=== PATIENT | female | born 1975 | race African-American/Black ===

== ENCOUNTER 2020-08-18 22:59 | Emergency (ER) | payer BC, OTHER ==
[~2020-08-18] VITALS: Ht 157.5 cm; Wt 113.6 kg
[~2020-08-18 22:59] MED LIST: CETI10TA74 PO; DULO60CA6 PO; LAMO200T3 PO
[2020-08-18] MEDS ORDERED: IPRATRPIUM/ALBUTEROL 0.5/2.5MG 3 ML NEBU. ONE (23:08)
[2020-08-18] MEDS ORDERED: IPRATRPIUM/ALBUTEROL 0.5/2.5MG 3 ML NEBU. NEB ONE (23:15)
[2020-08-18] MEDS ORDERED: IV RINGERS SOLUTION,LACTATED 1,000 ML IV SCH (23:15)
[2020-08-18] MEDS ORDERED: methylPREDNISolone SOD SUCC PF 125 MG/2 ML VIAL. IV ONE (23:30)
[2020-08-18] MEDS ORDERED: ASPIRIN CHEWABLE 81 MG TABLET. PO ONE (23:30)
[2020-08-18 23:40] LABS: BASO % 0 % (0-3); EOS % 0 % (0-3); HEMATOCRIT 46.5 % (36.0-47.0); HEMOGLOBIN 15.8 g/dL (12.0-15.5); LYMPH # 0.5 x10^3/uL (1.0-4.8); LYMPH % 4 % (24-48); MEAN CORPUSCULAR HEMOGLOBIN 33 pg (25-35); MEAN CORPUSCULAR HGB CONC 34 g/dL (31-37); MEAN CORPUSCULAR VOLUME 96 fL (79-100); MONO # 0.1 x10^3/uL (0.0-1.1); MONO % 1 % (0-9); NEUT # 10.4 x10^3uL (1.8-7.7); NEUT % 94 % (31-73); PLATELET COUNT 239 x10^3/uL (140-400); RED BLOOD COUNT 4.85 x10^6/uL (3.50-5.40); RED CELL DISTRIBUTION WIDTH 12.7 % (11.5-14.5)
[2020-08-19 00:09] LABS: CALCIUM 9.4 mg/dL (8.5-10.1); CREATININE 1.1 mg/dL (0.6-1.0); GFR 65.6; POTASSIUM 3.4 mmol/L (3.5-5.1)
[2020-08-19 00:24] LABS: ALBUMIN 3.9 g/dL (3.4-5.0); DIRECT BILIRUBIN 0.1 mg/dL (0.0-0.2); MAGNESIUM 2.2 mg/dL (1.8-2.4); TOTAL BILIRUBIN 0.2 mg/dL (0.2-1.0); TOTAL PROTEIN 7.1 g/dL (6.4-8.2)
[2020-08-19] MEDS ORDERED: IPRATRPIUM/ALBUTEROL 0.5/2.5MG 3 ML NEBU. NEB ONE (00:45)
[2020-08-19] MEDS ORDERED: PRED50TA PO (00:49)
--- NOTE | 2020-08-19 00:51 | RAD ---
INDICATION: Reason: dyspnea / Spl. Instructions: / History: COMPARISON: January 2012 FINDINGS: Single view of chest obtained. Cardiac silhouette is unremarkable. Mild haziness at the lower lungs without consolidation elsewhere. No gross osseous destructive lesion IMPRESSION: * Mild haziness at the lung bases. Could be secondary to overlap of soft tissue structures or atelec tasis. Electronically signed by: Dat Salinas MD (08/19/2020 12:49 AM) [id number]
[2020-08-19 00:53] VITALS: BP 159/93
--- NOTE | 2020-08-19 03:26 | EKG ---
[address] [address] Test Date: 2020-08-19 Test Time: 01:10:43 Pat Name: KENYON TAYLOR Department: Room: Gender: F Coal Digger: ALINA : 1975 Requested By: CHARLEY BHAKTA Order Number: [id number] Reading MD: Measurements Intervals [place] Rate: 85 P: -56 DE: 168 QRS: -51 QRSD: 136 T: 62 QT: 402 QTc: 479 Interpretive Statements SUPRAVENTRICULAR RHYTHM VENTRICULAR PREMATURE COMPLEX(ES) ABNORMAL LEFT AXIS DEVIATION LEFT BUNDLE BRANCH BLOCK ABNORMAL ECG RI6.02 No previous ECG available for comparison
--- NOTE | 2020-08-19 11:56 | PHYS DOC ---
Past History Past Medical History: Asthma, Bronchitis, Depression, Fibromyalgia, Hypertension Past Surgical History: , Hysterectomy Alcohol Use: None Drug Use: None General Adult EDM: Chief Complaint: SHORTNESS OF BREATH HPI: HPI: ".. My asthma.. .. Flared up tonight... I could not get it controlled with my inhaler...actually it been silvia.. f been sneaking up on me all week I got meds at home ...it just that I could never get ahead of it...." Patient is a 45 year old female who presents with complaints of an patient does not patient advises she been having increased respiratory difficulties all week with weather changes. Patient has had asthma problems since a child. No recent admissions for asthma exacerbations. Has not been on steroids recently. Has not been on antibiotics recently. Patient does not know her best peak flow. Patient states her triggers are seasonal. Patient does have past medical history of hypertension, fibromyalgia, and obesity. Patient normally follows with Dr. Ayoub for care. Patient has followed with Dr. Guzman in the past. Patient denies any recent travel or specific ill contacts. Patient does get a flu shot every year. Patient has had a Pneumovax. Review of Systems: Review of Systems: Constitutional: Denies fever or chills Eyes: Denies change in visual acuity HENT: Denies nasal congestion or sore throat Respiratory: History of a nonproductive cough and wheezing Cardiovascular: Denies chest pain or edema GI: Denies abdominal pain, nausea, vomiting, bloody stools or diarrhea : Denies dysuria Musculoskeletal: Denies back pain or joint pain Integument: Denies rash Neurologic: Denies headache, focal weakness or sensory changes Endocrine: Denies polyuria or polydipsia Lymphatic: Denies swollen glands Psychiatric: Denies depression or anxiety Family History: Family History: Noncontributory to presentation Current Medications: Current Meds: Current Medications Medications (Trade) Dose Ordered Sig/Eduardo Start Time Stop Time Status Last Admin Dose Admin Albuterol/ Ipratropium (Duoneb) 3 ml 1X ONCE 08/19/20 00:45 08/19/20 01:03 DC 08/19/20 00:49 3 ML Aspirin (Aspirin Chewable) 324 mg 1X ONCE 08/18/20 23:30 08/18/20 23:31 DC 08/19/20 00:12 324 MG Lactated Ringer's 1,000 ml @ 100 mls/hr Q10H 08/18/20 23:15 08/19/20 01:18 DC 08/19/20 00:10 100 MLS/HR Methylprednisolone Sodium Succinate (SOLU-Medrol 125MG VIAL) 125 mg 1X ONCE 08/18/20 23:30 08/18/20 23:31 DC 08/19/20 00:10 125 MG Allergies: Allergies: Allergies Coded Allergies Type Severity Reaction Last Updated Verified No Known Drug Allergies 08/19/20 No Physical Exam: PE: Constitutional: Moderate acute distress, non-toxic appearance. [] HENT: Normocephalic, atraumatic, bilateral external ears normal, oropharynx dry, postnasal drainage, no oral exudates, nose swollen turbinates and clear rhinorrhea Eyes: PERRLA, EOMI, conjunctiva normal, no discharge. Glasses Neck: Normal range of motion, no tenderness, supple, no stridor. [] Cardiovascular: Tachycardia heart rate regular rhythm, no murmur [] Lungs & Thorax: Bilateral breath sounds equal at apex with scattered wheezing throughout on auscultation [] Pt.has mild intercostal retraction. Abdomen: Bowel sounds decreased, soft, no tenderness, no masses, no pulsatile masses. Obese. Old surgical scars. Skin: Warm, dry, no erythema, no rash. [] Back: No tenderness, no CVA tenderness. [] Extremities: No tenderness, no cyanosis, no clubbing, ROM intact, ankle edema. No cording appreciated. Neurologic: Alert and oriented X 3, normal motor function, normal sensory function, no focal deficits noted. [] Psychologic: Affect anxious, judgement normal, mood normal. [] Current Patient Data: Labs: Laboratory Tests Test 08/18/20 23:20 White Blood Count 11.0 x10^3/uL (4.0-11.0) Red Blood Count 4.85 x10^6/uL (3.50-5.40) Hemoglobin 15.8 g/dL (12.0-15.5) H Hematocrit 46.5 % (36.0-47.0) Mean Corpuscular Volume 96 fL (79-100) Mean Corpuscular Hemoglobin 33 pg (25-35) Mean Corpuscular Hemoglobin Concent 34 g/dL (31-37) Red Cell Distribution Width 12.7 % (11.5-14.5) Platelet Count 239 x10^3/uL (140-400) Neutrophils (%) (Auto) 94 % (31-73) H Lymphocytes (%) (Auto) 4 % (24-48) L Monocytes (%) (Auto) 1 % (0-9) Eosinophils (%) (Auto) 0 % (0-3) Basophils (%) (Auto) 0 % (0-3) Neutrophils # (Auto) 10.4 x10^3uL (1.8-7.7) H Lymphocytes # (Auto) 0.5 x10^3/uL (1.0-4.8) L Monocytes # (Auto) 0.1 x10^3/uL (0.0-1.1) Eosinophils # (Auto) 0.0 x10^3/uL (0.0-0.7) Basophils # (Auto) 0.0 x10^3/uL (0.0-0.2) Prothrombin Time 9.3 SEC (9.4-11.4) L Prothrombin Time INR 0.9 (0.9-1.1) Activated Partial Thromboplast Time 22 SEC (23-33) L D-Dimer (Breana) 0.39 mg/L (0.00-0.50) Sodium Level 144 mmol/L (136-145) Potassium Level 3.4 mmol/L (3.5-5.1) L Chloride Level 104 mmol/L (98-107) Carbon Dioxide Level 29 mmol/L (21-32) Anion Gap 11 (6-14) Blood Urea Nitrogen 9 mg/dL (7-20) Creatinine 1.1 mg/dL (0.6-1.0) H Estimated GFR (Cockcroft-Gault) 65.6 Glucose Level 136 mg/dL (70-99) H Calcium Level 9.4 mg/dL (8.5-10.1) Magnesium Level 2.2 mg/dL (1.8-2.4) Total Bilirubin 0.2 mg/dL (0.2-1.0) Direct Bilirubin 0.1 mg/dL (0.0-0.2) Aspartate Amino Transferase (AST) 15 U/L (15-37) Alanine Aminotransferase (ALT) 22 U/L (14-59) Alkaline Phosphatase 64 U/L (46-116) Creatine Kinase 226 U/L (26-192) H Creatine Kinase MB (Mass) 6.2 ng/mL (0.0-3.6) H Creatine Kinase MB Relative Index 2.7 % (0-4) Troponin I Quantitative < 0.017 ng/mL (0-0.055) PE-Aia-I-Type Natriuretic Peptide 353 pg/mL (0-124) H Total Protein 7.1 g/dL (6.4-8.2) Albumin 3.9 g/dL (3.4-5.0) Lipase 140 U/L (73-393) Vital Signs: Vital Signs Date Time Temp Pulse Resp B/P (MAP) Pulse Ox O2 Delivery O2 Flow Rate FiO2 08/19/20 00:53 107 28 159/93 (115) 99 08/19/20 00:50 Room Air 08/18/20 22:59 98.3 EKG: EKG: EKG shows a sinus tachycardia, bimodal P waves. Low voltage throughout. No findings of acute STEMI of contralateral changes. [] Radiology/Procedures: Radiology/Procedures: [][address] [address] IMAGING REPORT Signed PATIENT: KENYON TAYLOR ACCOUNT: [id number] : 1975 LOCATION: ER AGE: 45 SEX: F EXAM STATUS: PRE ER ORD. PHYSICIAN: CHARLEY BHAKTA MD REASON: dyspnea PROCEDURE: PORTABLE CHEST 1V INDICATION: Reason: dyspnea / Spl. Instructions: / History: COMPARISON: January 2012 FINDINGS: Single view of chest obtained. Cardiac silhouette is unremarkable. Mild haziness at the lower lungs without consolidation elsewhere. No gross osseous destructive lesion IMPRESSION: * Mild haziness at the lung bases. Could be secondary to overlap of soft tissue structures or atelectasis. Electronically signed by: Joel Salinas MD (08/19/2020 12:49 AM) [id number] DICTATED AND SIGNED BY: JOEL SALINAS MD DATE: 08/19/20 0047 CC: SUZY GUZMAN MD; YONY,CHARLEY H MD ~MTH0 0 Heart Score: HEART Score for Chest Pain: HEART Score for Chest Pain Response (Comments) Value History Slighlty/Non-Suspicious 0 ECG Normal 0 Age < 45 0 Risk Factors No Risk Factors 0 Troponin < Normal Limit 0 Total 0 Risk Factors: Risk Factors: DM, Current or recent (<one month) smoker, HTN, HLP, family history of CAD, obesity. Risk Scores: Score 0 - 3: 2.5% MACE over next 6 weeks - Discharge Home Score 4 - 6: 20.3% MACE over next 6 weeks - Admit for Clinical Observation Score 7 - 10: 72.7% MACE over next 6 weeks - Early Invasive Strategies Course & Med Decision Making: Course & Med Decision Making Pertinent Labs and Imaging studies reviewed. (See chart for details) Patient given Solu-Medrol IV and repeat DuoNeb treatments in the emergency department with resolution of her dyspnea complaints. At time of discharge no longer in respiratory distress. Patient insistent on discharge home. Patient will be discharged on prednisone 50 mg daily for 5 days. Patient continue your MD I inhaler 2 puffs 4 times a day. Patient to document peak flows. Pt. Show these results to your doctor on follow-up. Patient return if any concerns. Patient instructed on spacer use as well as peak flow monitoring by respiratory therapy. Impression: 1. Asthma exacerbation 2. Morbid obesity [] Carter Disclaimer: Carter Disclaimer: This electronic medical record was generated, in whole or in part, using a voice recognition dictation system. Departure Departure: Impression: Primary Impression: Asthma action plan declined Additional Impression: Asthma Disposition: 01 [place] HOME SELF CARE/HOMELESS Condition: GUARDED Referrals: SUZY GUZMAN MD Patient Instructions: Asthma Prevention-Brief, Asthma, Acute Bronchospasm Additional Instructions: Push fluids. Use MDI two puffs four times a day. Take Prednisone 50 mg day. Follow up with Dr. Ayoub. Return if any concern.s Scripts Prednisone (PREDNISONE) 50 Mg Tablet 50 MG PO DAILY for asthma for 5 Days, #5 TAB Prov: CHARLEY BHAKTA MD 08/19/20 Carter Disclaimer This chart was dictated in whole or in part using Voice Recognition software in a busy, high-work load, and often noisy Emergency Department environment. It may contain unintended and wholly unrecognized errors or omissions. CHARLEY BHAKTA MD Aug 19, 2020 11:56
--- NOTE | 2020-08-19 13:37 | EKG ---
[address] [address] Test Date: 2020-08-18 Test Time: 23:57:57 Pat Name: KENYON TAYLOR Department: Room: Gender: F Resourcing Consultant: ALINA : 1975 Requested By: CHARLEY BHAKTA Order Number: [id number] Reading MD: Measurements Intervals [place] Rate: 96 P: -21 [place]: 106 QRS: 141 QRSD: 76 T: 138 QT: 364 QTc: 461 Interpretive Statements SINUS RHYTHM LEFT ATRIAL ABNORMALITY ABNORMAL RIGHT AXIS DEVIATION LOW LIMB LEAD VOLTAGE T ABNORMALITY IN HIGH LATERAL LEADS ABNORMAL ECG RI6.02 Compared to ECG 08/18/2020 23:54:27 Atrial abnormality now present Right-axis deviation now present Myocardial infarct finding no longer present T-wave abnormality still present
== END 2020-08-19 01:17 | disposition home or self-care (01) ==
LOC: ER 22:59
DX: J45.901 Unspecified asthma with (acute) exacerbation (principal); M79.7 Fibromyalgia; I10 Essential (primary) hypertension; Z90.710 Acquired absence of both cervix and uterus; Z98.890 Other specified postprocedural states
CPT/HCPCS: 36415; 71045; 80048; 80076; 82553; 83690; 83735; 83880; 84443; 84484; 85025; 85379; 85610; 85730; 93005; 94640; 96361; 96374; 99285; J2930; J7120

== ENCOUNTER 2020-12-02 03:07 | Emergency (ER) | payer OTHER ==
[~2020-12-02] VITALS: Ht 157.5 cm; Wt 106.4 kg
[~2020-12-02 03:07] MED LIST changes: +PRED50TA PO
[2020-12-02] MEDS ORDERED: ALBUTEROL SULFATE 2.5 MG/3 ML NEBU. ONE (03:11)
[2020-12-02] MEDS ORDERED: IPRATRPIUM/ALBUTEROL 0.5/2.5MG 3 ML NEBU. NEB ONE ×2 (03:15→04:45)
[2020-12-02] MEDS ORDERED: methylPREDNISolone SOD SUCC PF 125 MG/2 ML VIAL. IV ONE (03:30)
[2020-12-02] MEDS ORDERED: IV RINGERS SOLUTION,LACTATED 1,000 ML IV SCH (03:30)
[2020-12-02] MEDS ORDERED: MAGNESIUM SULFATE 2GM 50 ML IV ONE (03:30)
--- NOTE | 2020-12-02 03:36 | PHYS DOC ---
Past History Past Medical History: Asthma, Bronchitis, Depression, Fibromyalgia, Hypertension Past Surgical History: , Hysterectomy Alcohol Use: None Drug Use: Cocaine General Adult EDM: Chief Complaint: SHORTNESS OF BREATH HPI: HPI: ".. I....can't....breath.....asthma....." Patient is a 45 year old female who presents with above hx and complaints of asthma exacerbation. Patient unable to speak a full sentence only able to utter a word at a time.. Minimal air movement. In tripod position with intercostal retractions. Have seen patient before in August of last year for acute asthma exacerbation. Patient does follow-up with shear operator automatic at [facility]. Reportedly her eosinophil counts have been going up in the last couple visits with shear operator automatic. Patient denies any change in meds. Has not been on steroids recently. Patient in the past has had flares related to weather changes and season changes. Patient has been admitted overnight for asthma exacerbations. Has never been intubated. Patient is not currently on steroids. No recent travel. No sick contacts. Patient did get flu vaccination and is up-to-date with Pneumovax. Patient normally follows with Dr. Faith Rodriguez Patient has a past medical history of hypertension, fibromyalgia, obesity. No use immunosuppression. Patient is not ready to call her previous best peak flow.\\ Review of Systems: Review of Systems: Constitutional: Denies fever or chills Eyes: Denies change in visual acuity HENT: Denies nasal congestion or sore throat Respiratory: Complains of wheezing and shortness of breath Cardiovascular: Denies chest pain or edema GI: Denies abdominal pain, nausea, vomiting, bloody stools or diarrhea : Denies dysuria Musculoskeletal: Denies back pain or joint pain Integument: Denies rash Neurologic: Denies headache, focal weakness or sensory changes Endocrine: Denies polyuria or polydipsia Lymphatic: Denies swollen glands Psychiatric: Denies depression or anxiety Family History: Family History: Noncontributory presentation Current Medications: Current Meds: Current Medications Medications (Trade) Dose Ordered Sig/Eduardo Start Time Stop Time Status Last Admin Dose Admin Albuterol Sulfate (Ventolin) 2.5 mg STK-MED ONCE 12/02/20 03:11 12/02/20 03:11 DC Albuterol/ Ipratropium (Duoneb) 6 ml 1X ONCE 12/02/20 03:15 12/02/20 03:22 DC 12/02/20 03:20 6 ML Lactated Ringer's 1,000 ml @ 1,000 mls/hr Q1H 12/02/20 03:30 12/02/20 04:29 Magnesium Sulfate 50 ml @ 25 mls/hr 1X ONCE 12/02/20 03:30 12/02/20 05:29 Methylprednisolone Sodium Succinate (SOLU-Medrol 125MG VIAL) 125 mg 1X ONCE 12/02/20 03:30 12/02/20 03:31 DC Allergies: Allergies: Allergies Coded Allergies Type Severity Reaction Last Updated Verified No Known Drug Allergies 08/19/20 No Physical Exam: PE: Constitutional: in acute distress, very anxious in appearance. [] HENT: Normocephalic, atraumatic, bilateral external ears normal. Glases.[] Neck: Normal range of motion, no tenderness, supple, no stridor. More than 17 have anxious circumference Cardiovascular: Tachycardia heart rate regular rhythm, no murmur [] Lungs & Thorax: Bilateral breath sounds diminished throughout on auscultation []. After first treatment with DuoNeb did have wheezes throughout and better air movement. Abdomen: Bowel sounds normal, soft, no tenderness, no masses, no pulsatile masses. [] Old surgical scars.. Obese Skin: Warm, diaphoretic, no erythema, no rash. [] Back: No tenderness, no CVA tenderness. [] Extremities: No tenderness, no cyanosis, no clubbing, ROM intact, ankle edema. [] No cording. Neurologic: Alert and oriented X 3, moves all extremities on request, does have distal sensory, no focal deficits noted. [] Psychologic: Affect extremely anxious, panic, judgement normal, mood normal. [] Current Patient Data: Vital Signs: Vital Signs Date Time Temp Pulse Resp B/P (MAP) Pulse Ox O2 Delivery O2 Flow Rate FiO2 12/02/20 03:28 100 Room Air EKG: EKG: My interpretation of EKG shows a sinus rhythm at 84 bpm. No acute morphology. Radiology/Procedures: Radiology/Procedures: [][address] [address] IMAGING REPORT Signed PATIENT: BUYCKKENYON Bolton ACCOUNT: [id number] : 1975 LOCATION: ER AGE: 45 SEX: F EXAM STATUS: REG ER ORD. PHYSICIAN: CHARLEY BHAKTA MD REASON: cp, dyspnea PROCEDURE: PORTABLE CHEST 1V Study: XR CHEST 1V Indication: Chest pain. Dyspnea. Comparison: 08/18/2020 Findings: Unchanged cardiomediastinal silhouette and romero. No lobar consolidation, layering effusion or pneumothorax. Mild flattening of the diaphragm. Impression: No acute abnormality is identified. No significant change from 08/18/2020. Mild flattening of the diaphragm could be physiologic but correlate for a smoking history to suggest underlying COPD. Electronically signed by: CAMILLA SOLIS MD (12/02/2020 3:45 AM) [facility] DICTATED AND SIGNED BY: CAMILLA SOLIS MD DATE: 12/02/20 0344 CC: MIL SHRESTHA MD; CHARLEY BHAKTA MD ~MTH0 0 Heart Score: C/O Chest Pain: N/A HEART Score for Chest Pain: HEART Score for Chest Pain Response (Comments) Value History Moderately Suspicious 1 ECG Nonspecific Repolarizatio 1 Age < 45 0 Risk Factors 1 or 2 Risk Factors 1 Troponin < Normal Limit 0 Total 3 Risk Factors: Risk Factors: DM, Current or recent (<one month) smoker, HTN, HLP, family history of CAD, obesity. Risk Scores: Score 0 - 3: 2.5% MACE over next 6 weeks - Discharge Home Score 4 - 6: 20.3% MACE over next 6 weeks - Admit for Clinical Observation Score 7 - 10: 72.7% MACE over next 6 weeks - Early Invasive Strategies Course & Med Decision Making: Course & Med Decision Making Pertinent Labs and Imaging studies reviewed. (See chart for details) Pt.improved significantly with fluids, duo nebs, steroids, magnesium IV. Patient no longer tachycardia at time of discharge and was moving air well. Patient continue meds. It appears directed by her shear operator automatic. Patient take prednisone 50 mg daily for 5 days. Patient follow-up with primary care. Patient return for any concerns. Patient currently declines admission at this time. Patient encouraged to avoid marijuana and cocaine use or exposure to secondary smoke. Impression: 1. Respiratory failure-acute asthma exacerbation 2. Drug screen + for marijuana and cocaine 3. Elevated CK 460 Dragon Disclaimer: Dragon Disclaimer: This electronic medical record was generated, in whole or in part, using a voice recognition dictation system. Departure Departure: Referrals: MIL SHRESTHA MD (PCP) Scripts Ipratropium/Albuterol Sulfate (DUONEB 0.5-3(2.5) MG/3 ML) 3 Ml Ampul.neb 3 ML NEB QID for asthma, #120 EACH Prov: CHARLEY BHAKTA MD 12/02/20 Prednisone (PREDNISONE) 50 Mg Tablet 50 MG PO DAILY for asthma, #5 TAB Prov: CHARLEY BHAKTA MD 12/02/20 Carter Disclaimer This chart was dictated in whole or in part using Voice Recognition software in a busy, high-work load, and often noisy Emergency Department environment. It may contain unintended and wholly unrecognized errors or omissions. CHARLEY BHAKTA MD Dec 02, 2020 03:35
[2020-12-02 03:41] LABS: BASO # 0.1 x10^3/uL (0.0-0.2); BASO % 1 % (0-3); EOS # 0.6 x10^3/uL (0.0-0.7); EOS % 10 % (0-3); HEMATOCRIT 43.2 % (36.0-47.0); HEMOGLOBIN 14.7 g/dL (12.0-15.5); LYMPH # 2.4 x10^3/uL (1.0-4.8); LYMPH % 39 % (24-48); MEAN CORPUSCULAR HEMOGLOBIN 33 pg (25-35); MEAN CORPUSCULAR HGB CONC 34 g/dL (31-37); MEAN CORPUSCULAR VOLUME 97 fL (79-100); MONO # 0.3 x10^3/uL (0.0-1.1); MONO % 5 % (0-9); NEUT # 2.7 x10^3uL (1.8-7.7); NEUT % 45 % (31-73); PLATELET COUNT 218 x10^3/uL (140-400); RED BLOOD COUNT 4.46 x10^6/uL (3.50-5.40); RED CELL DISTRIBUTION WIDTH 12.9 % (11.5-14.5)
[2020-12-02 03:46] LABS: CALCIUM 8.8 mg/dL (8.5-10.1); CREATININE 1.2 mg/dL (0.6-1.0); GFR 59.3; POTASSIUM 3.3 mmol/L (3.5-5.1)
--- NOTE | 2020-12-02 03:48 | RAD ---
Study: XR CHEST 1V Indication: Chest pain. Dyspnea. Comparison: 08/18/2020 Findings: Unchanged cardiomediastinal silhouette and romero. No lobar consolidation, layering effusion or pneumot horax. Mild flattening of the diaphragm. Impression: No acute abnormality is identified. No significant change from 08/18/2020. Mild flattening of the diaph ragm could be physiologic but correlate for a smoking history to suggest underlying COPD. Electronically signed by: CAMILLA SOLIS MD (12/02/2020 3:45 AM) [facility]
[2020-12-02 03:59] LABS: ALBUMIN 3.7 g/dL (3.4-5.0); DIRECT BILIRUBIN 0.1 mg/dL (0.0-0.2); TOTAL BILIRUBIN 0.2 mg/dL (0.2-1.0); TOTAL PROTEIN 6.3 g/dL (6.4-8.2)
[2020-12-02 04:28] VITALS: BP 148/95
--- NOTE | 2020-12-02 04:33 | EKG ---
[address] [address] Test Date: 2020-12-02 Test Time: 04:19:49 Pat Name: KENYON TAYLOR Department: Room: Gender: F Prepress Specialist: ALINA : 1975 Requested By: CHARLEY BHAKTA Order Number: [id number] Reading MD: Measurements Intervals [place] Rate: 84 P: 62 [place]: 140 QRS: 43 QRSD: 76 T: 44 QT: 386 QTc: 460 Interpretive Statements SINUS RHYTHM NORMAL ECG RI6.02 No previous ECG available for comparison
[2020-12-02] MEDS ORDERED: IPRA3AMP29 NEB (04:41)
[2020-12-02] MEDS ORDERED: PRED50TA PO (04:41)
[2020-12-02 04:48] LABS: BARBITURATES NEG (NEG); BENZODIAZEPINES NEG (NEG); CANNABINOIDS POS (NEG); COCAINE POS (NEG); METHADONE NEG (NEG); OPIATES NEG (NEG); PHENCYCLIDINE NEG (NEG)
[2020-12-02 04:54] LABS: BACTERIA,URINE 0 /HPF (0-FEW); BILIRUBIN,URINE NEG (NEG); CLARITY,URINE CLEAR; COLOR,URINE COLORLESS; GLUCOSE,URINE NEG (NEG); NITRITE,URINE NEG (NEG); RBC,URINE 0 /HPF (0-2); SQUAMOUS EPITHELIAL CELL,UR FEW /LPF; UROBILINOGEN,URINE 0.2 mg/dL (0.2 mg/dL); WBC,URINE 0 /HPF (0-4)
[2020-12-02 04:58] LABS: AMPHETAMINE/METHAMPHETAMINE NEG (NEG)
== END 2020-12-02 05:40 | disposition home or self-care (01) ==
LOC: ER 03:07
DX: J96.90 Respiratory failure, unspecified, unspecified whether with hypoxia or hypercapnia (principal); J45.901 Unspecified asthma with (acute) exacerbation; I10 Essential (primary) hypertension; F14.10 Cocaine abuse, uncomplicated; F12.10 Cannabis abuse, uncomplicated; R74.8 Abnormal levels of other serum enzymes
CPT/HCPCS: 36415; 71045; 80048; 80076; 80307; 81001; 82550; 83690; 83735; 83880; 84443; 84484; 85025; 85379; 85610; 85730; 93005; 94640; 96365; 96366; 96375; 99285; J2930; J3475; J7120

== ENCOUNTER 2021-07-18 00:43 | Emergency (ER) | payer OTHER ==
[~2021-07-18] VITALS: Ht 157.5 cm; Wt 109.0 kg
[~2021-07-18 00:43] MED LIST changes: -DULO60CA6 PO; +DULO60CA7 PO; +IPRA3AMP29 NEB
[2021-07-18 01:30] VITALS: BP 131/82
--- NOTE | 2021-07-18 01:59 | PHYS DOC ---
Past History Past Medical History: Asthma, Bronchitis, Depression, Fibromyalgia, Hypertension Past Surgical History: Cholecystectomy, Hysterectomy Alcohol Use: None Drug Use: Cocaine General Adult EDM: Chief Complaint: ABDOMINAL PAIN HPI: HPI: ".. I am having bad lower abdomen pain... and fever's.. I think my diverticulitis is coming back....".." I ve had some constipation... " Patient is a 45 year old female who presents with above hx and complaints of interment fever and left lower abdomen pain. Patient has had previous hysterectomy 10 years ago secondary to endometriosis. She is 2 term 2. Has had episodes of diverticulitis in the past. Currently she rates her lower abdomen pain as 8 out of 10. No history of intake of bad food. No trauma. No history of recent travel. Has completed COVID vaccination. Patient normally follows with . Review of Systems: Review of Systems: Constitutional: History of fever or chills Eyes: Denies change in visual acuity HENT: Denies nasal congestion or sore throat Respiratory: Denies cough or shortness of breath Cardiovascular: Denies chest pain or edema GI: Complaints of lower abdominal pain, nausea. Denies, vomiting, bloody stools or diarrhea : Denies dysuria Musculoskeletal: Complains of low back pain or joint pain Integument: Denies rash Neurologic: Denies headache, focal weakness or sensory changes Endocrine: Denies polyuria or polydipsia Lymphatic: Denies swollen glands Psychiatric: Denies depression or anxiety Family History: Family History: Noncontributory to presentation Current Medications: Current Meds: See nursing for home meds Allergies: Allergies: Allergies Coded Allergies Type Severity Reaction Last Updated Verified metronidazole Allergy Intermediate 07/18/21 Yes Physical Exam: PE: Constitutional: Moderate acute distress, non-toxic appearance. [] HENT: Normocephalic, atraumatic, bilateral external ears normal, oropharynx moist, no oral exudates, nose normal. [] Eyes: PERRLA, EOMI, conjunctiva normal, no discharge. [] Neck: Normal range of motion, no tenderness, supple, no stridor. [] Cardiovascular:Heart rate regular rhythm, no murmur [] Lungs & Thorax: Bilateral breath sounds equal at apex on auscultation [] Abdomen: Bowel sounds normal, soft, lower left tenderness, no masses, no pulsatile masses. Obese. Old surgery scars. Skin: Warm, dry, no erythema, no rash. [] Back: No tenderness, no CVA tenderness. [] Extremities: No tenderness, no cyanosis, no clubbing, ROM intact, bilateral ankle edema. [] No cording appreciated Neurologic: Alert and oriented X 3, normal motor function, normal sensory function, no focal deficits noted. [] Psychologic: Affect anxious, judgement normal, mood normal. [] Current Patient Data: Vital Signs: Vital Signs Date Time Temp Pulse Resp B/P (MAP) Pulse Ox O2 Delivery O2 Flow Rate FiO2 07/18/21 01:30 98.1 97 16 131/82 (98) 99 Room Air EKG: EKG: [] Radiology/Procedures: Radiology/Procedures: [address] [address] IMAGING REPORT Signed PATIENT: KENYON TAYLOR ACCOUNT: [id number] : 1975 LOCATION: ER AGE: 45 SEX: F EXAM STATUS: REG ER ORD. PHYSICIAN: CHARLEY BHAKTA MD REASON: hx of diverticulitis, OMNI 300, 75ml & OMNI 240, 30ml PROCEDURE: CT ABD PELV W/ORAL&IV CONTRAST INDICATION: Reason: hx of diverticulitis, OMNI 300, 75ml OMNI 240, 30ml / Spl. Instructions: / History: COMPARISON: October 2014 TECHNIQUE: Axial CT images were obtained through the abdomen and pelvis with intravenous contrast. Limited contrast bolus. This limits the exam. One or more of the following individualized dose reduction techniques were utilized for this examination: 1. Automated exposure control; 2. Adjustment of the mA and/or kV according to patient size; 3. Use of iterative reconstruction technique. FINDINGS: Vascular: No abdominal aortic aneurysm. Hepatobiliary: Postcholecystectomy with prominence of the bile ducts which is commonly seen postoperatively. Pancreas: No peripancreatic edema. Spleen: Spleen unremarkable. Renal/Bladder: Urinary bladder is partially distended with prominent wall. No hydronephrosis. Gastrointestinal: Colonic diverticulosis. Low-density lesion in the right adnexa measuring up to approximately 39 mm. Moderate stool throughout the colon. No periappendiceal inflammatory changes. No dilated loops of bowel to suggest obstruction. Degenerative changes the spine with multilevel central canal and neural foraminal stenosis. Sclerosis at sacroiliac joints which could be from degeneration or chronic sacroiliitis. IMPRESSION: * No evidence of bowel obstruction or appendicitis. * Urinary bladder wall is mildly prominent in thickness. Could be from lack of distention but would correlate with symptoms and lab markers to ensure there is not a cystitis contributing. * Low-density lesion at the right adnexa could be a small cyst at the right ovary. * Colonic diverticulosis. Stool is seen throughout the colon which can be seen with constipation. Electronically signed by: Joel Ivy MD (07/18/2021 4:43 AM) [employer] [id number] DICTATED AND SIGNED BY: JOEL IVY MD DATE: 07/18/21433 CC: MIL SHRESTHA MD; CHARLEY BHAKTA MD ~MTH0 0 [][place] [address] IMAGING REPORT Signed PATIENT: KENYON TAYLOR ACCOUNT: [id number] : 1975 LOCATION: ER AGE: 45 SEX: F EXAM STATUS: REG ER ORD. PHYSICIAN: CHARLEY BHAKTA MD REASON: pain- hx diverticultiis PROCEDURE: ACUTE ABDOMEN SERIES INDICATION: Reason: pain- hx diverticultiis / Spl. Instructions: / History: COMPARISON: CT from October 2014 IMPRESSION: 3 views of the chest and abdomen obtained. No focal airspace consolidation to suggest pneumonia. Cardiac silhouette unremarkable. Cholecystectomy clips. There are some prominent stool seen scattered throughout the colon. Grossly nonobstructive bowel gas pattern. Electronically signed by: Joel Ivy MD (07/18/2021 4:53 AM) [id number] DICTATED AND SIGNED BY: JOEL IVY MD DATE: 07/18/21451 CC: MIL SHRESTHA MD; CHARLEY BHAKTA MD ~MTH0 0 Heart Score: C/O Chest Pain: N/A Risk Factors: Risk Factors: DM, Current or recent (<one month) smoker, HTN, HLP, family history of CAD, obesity. Risk Scores: Score 0 - 3: 2.5% MACE over next 6 weeks - Discharge Home Score 4 - 6: 20.3% MACE over next 6 weeks - Admit for Clinical Observation Score 7 - 10: 72.7% MACE over next 6 weeks - Early Invasive Strategies Course & Med Decision Making: Course & Med Decision Making Pertinent Labs and Imaging studies reviewed. (See chart for details) Patient encouraged to stay on a clear fluid diet x48 hours.. Push fluids. Avoid illicit drugs. Return if any concerns. Follow-up with Dr. Barbosa. Impression: 1. Abdomen Pain 2. Hx Fever and Chills. 3. Constipation 4. Mild Elevation of Lipase 676 5. Polysubstance abuse- Tobacco, marijuana, cocaine, narcotics [] Dragon Disclaimer: Dragon Disclaimer: This electronic medical record was generated, in whole or in part, using a voice recognition dictation system. Departure Departure: Referrals: MIL SHRESTHA MD (PCP) Dragon Disclaimer This chart was dictated in whole or in part using Voice Recognition software in a busy, high-work load, and often noisy Emergency Department environment. It may contain unintended and wholly unrecognized errors or omissions. Dragon Disclaimer This chart was dictated in whole or in part using Voice Recognition software in a busy, high-work load, and often noisy Emergency Department environment. It may contain unintended and wholly unrecognized errors or omissions. CHARLEY BHAKTA MD Jul 18, 2021 01:58
[2021-07-18] MEDS ORDERED: KETOROLAC 30 MG/ML VIAL. IVP ONE (02:03)
[2021-07-18] MEDS ORDERED: FAMOTIDINE 20 MG/2 ML VIAL IVP ONE (02:30)
[2021-07-18] MEDS ORDERED: IOHEXOL 240 MG/ML 50ML VIAL. PO ONE (02:30)
[2021-07-18] MEDS ORDERED: ONDANSETRON PF 4 MG/2 ML VIAL. IVP ONE (02:30)
[2021-07-18] MEDS ORDERED: CONTRAST GIVEN. MC PRN (02:30)
[2021-07-18] MEDS ORDERED: IV RINGERS SOLUTION,LACTATED 1,000 ML IV SCH (02:30)
[2021-07-18] MEDS ORDERED: IOHEXOL 350 MG/ML 100 ML VIAL. IV ONE (02:30)
[2021-07-18 02:31] LABS: BARBITURATES NEG (NEG); BENZODIAZEPINES NEG (NEG); CANNABINOIDS POS (NEG); COCAINE POS (NEG); METHADONE NEG (NEG); OPIATES POS (NEG); PHENCYCLIDINE NEG (NEG)
[2021-07-18 02:34] LABS: AMPHETAMINE/METHAMPHETAMINE NEG (NEG)
[2021-07-18 02:47] LABS: BACTERIA,URINE FEW /HPF (0-FEW); BILIRUBIN,URINE SMALL (NEG); CLARITY,URINE CLEAR; COLOR,URINE YELLOW; GLUCOSE,URINE NEG (NEG); NITRITE,URINE NEG (NEG); RBC,URINE 0 /HPF (0-2); SQUAMOUS EPITHELIAL CELL,UR FEW /LPF; WBC,URINE 0 /HPF (0-4)
[2021-07-18 02:59] LABS: BASO % 1 % (0-3); EOS # 0.2 x10^3/uL (0.0-0.7); EOS % 4 % (0-3); HEMATOCRIT 43.9 % (36.0-47.0); HEMOGLOBIN 14.6 g/dL (12.0-15.5); LYMPH # 2.5 x10^3/uL (1.0-4.8); LYMPH % 38 % (24-48); MEAN CORPUSCULAR HEMOGLOBIN 32 pg (25-35); MEAN CORPUSCULAR HGB CONC 33 g/dL (31-37); MEAN CORPUSCULAR VOLUME 97 fL (79-100); MONO # 0.3 x10^3/uL (0.0-1.1); MONO % 5 % (0-9); NEUT # 3.4 x10^3uL (1.8-7.7); NEUT % 53 % (31-73); PLATELET COUNT 241 x10^3/uL (140-400); RED BLOOD COUNT 4.52 x10^6/uL (3.50-5.40); WHITE BLOOD COUNT 6.5 x10^3/uL (4.0-11.0)
[2021-07-18 03:28] LABS: CALCIUM 7.9 mg/dL (8.5-10.1); CREATININE 1.2 mg/dL (0.6-1.0); GFR 59.3; POTASSIUM 3.6 mmol/L (3.5-5.1)
[2021-07-18 03:30] LABS: ALBUMIN 3.5 g/dL (3.4-5.0); DIRECT BILIRUBIN 0.1 mg/dL (0.0-0.2); TOTAL BILIRUBIN 0.2 mg/dL (0.2-1.0); TOTAL PROTEIN 6.2 g/dL (6.4-8.2)
[2021-07-18] MEDS ORDERED: IOHEXOL 300 MG/ML 75 ML VIAL. IV ONE (04:00)
--- NOTE | 2021-07-18 04:45 | RAD ---
INDICATION: Reason: hx of diverticulitis, OMNI 300, 75ml OMNI 240, 30ml / Spl. Instructions: / His tory: COMPARISON: October 2014 TECHNIQUE: Axial CT images were obtained through the abdomen and pelvis with intravenous contrast. Limited contr ast bolus. This limits the exam. One or more of the following individualized dose reduction techniques were utilized for this examinat ion: 1. Automated exposure control; 2. Adjustment of the mA and/or kV according to patient size; 3 . Use of iterative reconstruction technique. FINDINGS: Vascular: No abdominal aortic aneurysm. Hepatobiliary: Postcholecystectomy with prominence of the bile ducts which is commonly seen postopera tively. Pancreas: No peripancreatic edema. Spleen: Spleen unremarkable. Renal/Bladder: Urinary bladder is partially distended with prominent wall. No hydronephrosis. Gastrointestinal: Colonic diverticulosis. Low-density lesion in the right adnexa measuring up to approximately 39 mm. Moderate stool throughout the colon. No periappendiceal inflammatory changes. No dilated loops of bowel to suggest obstruction. Degenerative changes the spine with multilevel central canal and neural foraminal stenosis. Sclerosis at sacroiliac joints which could be from degeneration or chronic sacroiliitis. IMPRESSION: * No evidence of bowel obstruction or appendicitis. * Urinary bladder wall is mildly prominent in thickness. Could be from lack of distention but would correlate with symptoms and lab markers to ensure there is not a cystitis contributing. * Low-density lesion at the right adnexa could be a small cyst at the right ovary. * Colonic diverticulosis. Stool is seen throughout the colon which can be seen with constipation. Electronically signed by: Dat Salinas MD (07/18/2021 4:43 AM) [id number]
--- NOTE | 2021-07-18 04:55 | RAD ---
INDICATION: Reason: pain- hx diverticultiis / Spl. Instructions: / History: COMPARISON: CT from October 2014 IMPRESSION: 3 views of the chest and abdomen obtained. No focal airspace consolidation to suggest pneumonia. Cardiac silhouette unremarkable. Cholecystectomy clips. There are some prominent stool seen scattered throughout the colon. Grossly nonobstructive bowel gas pattern. Electronically signed by: Dat Salinas MD (07/18/2021 4:53 AM) [id number]
[2021-07-18 05:01] LABS: INFLUENZA A PATIENT NEGATIVE (NEGATIVE); INFLUENZA B PATIENT NEGATIVE (NEGATIVE)
[2021-07-18] MEDS ORDERED: MORPHINE SULFATE 10 MG/ML SYRINGE. SQ ONE (06:30)
[2021-07-18] MEDS ORDERED: MAGNESIUM HYDROXIDE 2,400 MG/30 ML ORAL.SUSP. PO ONE (06:30)
--- NOTE | 2021-07-19 11:20 | NUR ---
ATTEMPTED TO REACH PATIENT WITH COVID RESULTS. NO ANSWER. MESSAGE LEFT
== END 2021-07-18 06:23 | disposition home or self-care (01) ==
LOC: ER 00:43
DX: K59.00 Constipation, unspecified (principal); R74.8 Abnormal levels of other serum enzymes; F19.10 Other psychoactive substance abuse, uncomplicated; J45.909 Unspecified asthma, uncomplicated; F32.9 Major depressive disorder, single episode, unspecified; M79.7 Fibromyalgia; I10 Essential (primary) hypertension; Z20.822 Contact with and (suspected) exposure to COVID-19; Z90.49 Acquired absence of other specified parts of digestive tract; Z90.710 Acquired absence of both cervix and uterus; Z88.8 Allergy status to other drugs, medicaments and biological substances
CPT/HCPCS: 36415; 74022; 74177; 80048; 80076; 80307; 81001; 82150; 82550; 83690; 85025; 85610; 85730; 87426; 87804; 96361; 96372; 96374; 96375; 99285; C9803; J1885; J2270; J2405; J3490; J7120; Q9966; Q9967; U0003